=== PATIENT | male | born 1965 | race Caucasian/White ===

== ENCOUNTER → 2018-03-09 | Outpatient (CLI) | payer OTHER ==
--- NOTE | 2018-03-09 12:46 | MR ---
EXAMINATION TYPE: MR cervical spine wo con DATE OF EXAM: 03/09/2018 COMPARISON: NONE HISTORY: 52-year-old male Cervicalgia, BROWN TECHNIQUE: Multiplanar, multisequence images of the cervical spine were acquired. Findings: No craniocervical junction abnormality, predental space widening, or prevertebral soft tissue swellin g. Preserved alignment of the cervical spine. Mild heterogeneous marrow signal without suspicious focal marrow replacement. Variable mild intervertebral disc desiccation throughout with multilevel disc osteophyte complexes, l argest at C6-C7. Ligamentum flavum thickening in the mid to lower cervical spine along with facet and uncovertebral joint degenerative change. At C2-C3, facet degenerative change without significant canal or foraminal stenosis. At C3-C4, facet and uncovertebral joint degenerative change, greater on the right with small disc ost eophyte complex which abuts but does not flatten the ventral cord. No significant spinal canal stenos is. Changes result in lefm-al-elbhxrtm right neuroforaminal stenosis. At C4-C5, uncovertebral joint and facet degenerative change without significant canal or foraminal st enosis. At C5-C6, uncovertebral joint and facet degenerative change. Changes result in moderate to severe lef t neuroforaminal stenosis. Disc osteophyte complex and ligamentum flavum thickening is present. Minim al impression onto the thecal sac without significant spinal canal stenosis. At C6/C7, there is disc osteophyte complex eccentric towards the left with uncovertebral joint and fa cet degenerative change. Changes result in moderate left greater than right neural foraminal stenosis with mild narrowing of the spinal canal and abutment of the ventral cord without cord flattening. At C7-T1, mild facet degenerative change without canal or foraminal stenosis. No prevertebral or paravertebral soft tissue abnormality seen. Normal course and signal intensity of the cervical cord. IMPRESSION: 1. Mild to moderate degenerative disc disease with scattered facet and uncovertebral joint arthropath y. 2. Disc osteophyte complex and ligamentum flavum thickening contribute to mild spinal canal stenosis at C6-C7. There is ventral cord abutment without cord compression or tracy canal compromise. 3. Variable neuroforaminal stenoses as outlined above, moderate to severe on the left at C5-C6 and mo derate left greater than right at C6-C7.
== END | disposition home or self-care (01) ==
LOC: RADMRIMAIN 10:29
PROVIDERS: ATTEND Family Medicine
DX: M48.02 Spinal stenosis, cervical region (principal); M99.71 Connective tissue and disc stenosis of intervertebral foramina of cervical region; M50.30 Other cervical disc degeneration, unspecified cervical region; M46.92 Unspecified inflammatory spondylopathy, cervical region; M25.78 Osteophyte, vertebrae
CPT/HCPCS: 72141

== ENCOUNTER → 2018-08-19 | Outpatient (CLI) | payer OTHER ==
--- NOTE | 2018-08-19 14:16 | CT ---
EXAMINATION TYPE: CT soft tissue neck wo/w con DATE OF EXAM: 08/19/2018 HISTORY: Enlarged lymph node. History of Natarajan's esophagus. 75 pounds weight loss over 9 months. COMPARISON: 03/09/[address] DLP: 1139 mGycm. Automated Exposure Control for Dose Reduction was Utilized. TECHNIQUE: CT scan of the neck is performed without and with IV Contrast, patient injected with 100 ml mL of Isovue 300, axial images are obtained, coronal and sagittal reformatted images are reviewed. FINDINGS: Airway: Near complete to complete obstruction of the oropharynx likely secondary to relaxation of the soft palate and tonsillar hypertrophy. The vallecula, piriform sinuses, focal cords, and true vocal cords are unremarkable. Thyroid gland is also symmetric and unremarkable. Parotid/submandibular glands: Parotid glands and submandibular glands are symmetric. No calculi or hanley rrounding inflammatory fat stranding. Carotid/Vascular Structures: Calcific atherosclerosis predominates at the carotid bulbs bilaterally. Osseous Structures: There is rightward nasal septal deviation. Visualized paranasal sinuses and masto id air cells are well aerated. Mild multilevel degenerative changes of the spine are seen. Other: No evidence of adenopathy is seen within the neck. IMPRESSION: 1. Near to complete obstruction of the oropharynx. This appears to be secondary to relative fixation of the soft palate and tonsillar hypertrophy. Direct visualization is recommended. 2. No adenopathy of the neck is appreciated. 3. Atherosclerosis of the carotids, predominating within the carotid bulbs. Carotid ultrasound could be performed for further evaluation.
== END | disposition home or self-care (01) ==
LOC: RADCTMAIN 06:59
PROVIDERS: ATTEND Family Medicine
DX: I65.29 Occlusion and stenosis of unspecified carotid artery (principal); J39.2 Other diseases of pharynx
CPT/HCPCS: 70492; Q9967

== ENCOUNTER → 2020-07-31 | Outpatient (CLI) | payer OTHER ==
--- NOTE | 2020-07-31 08:41 | US ---
EXAMINATION TYPE: US abdomen complete DATE OF EXAM: 07/31/2020 COMPARISON: NONE CLINICAL HISTORY: R10.84 Generalized abdominal pain. Pt states generalized ABD pain with nausea post bowel movements x many years EXAM MEASUREMENTS: Liver Length: 15.7 cm Gallbladder Wall: 0.2 cm CBD: 0.3 cm Spleen: 8.0 cm Right Kidney: 11.0 x 4.7 x 5.5 cm Left Kidney: 11.5 x 6.1 x 5.0 cm Pancreas: wnl, tail obscured by overlying bowel gas Liver: Appear wnl Gallbladder: Probable polyp posterior wall Evidence for sonographic Obrien's sign: No CBD: wnl Spleen: wnl Right Kidney: wnl Left Kidney: wnl Upper IVC: wnl Abd Aorta: No evidence of AAA, there are aortic wall calcifications present. IMPRESSION: 1. Cholelithiasis versus gallbladder wall polyp. 2. Ultrasound abdomen is visualized is otherwise unremarkable.
== END | disposition home or self-care (01) ==
LOC: RADUSWWP 08:06
PROVIDERS: ATTEND Family Medicine
DX: R10.84 Generalized abdominal pain (principal)
CPT/HCPCS: 76700

== ENCOUNTER 2020-09-12 10:49 | Day surgery (SDC) | payer OTHER ==
[2020-09-10 15:09] VITALS: BMI 23.0
[~2020-09-12 10:49] MED LIST: LACTATED RINGERS 1,000 ML IV SCH
[2020-09-12 11:06] VITALS: RESP 16; TEMP 97.7
[2020-09-12] MEDS ORDERED: LIDOCAINE 1% (10MG/ML) FOR IV START INTRADERMA ONE (11:10)
[2020-09-12] MEDS ORDERED: MIDAZOLAM 2 MG/2 ML VIAL ONE (11:16)
[2020-09-12] MEDS ORDERED: LIDOCAINE 1% INJ 10MG/ML (20 ML MDV) ONE (11:16)
[2020-09-12] MEDS ORDERED: GLYCOPYRROLATE 0.2 MG/ML 2 ML VIAL ONE (11:16)
[2020-09-12] MEDS ORDERED: fentaNYL (PF) 50 MCG/ML 2 ML AMP ONE (11:16)
[2020-09-12] MEDS ORDERED: PROPOFOL 10 MG/ML 20 ML VIAL IV ONE (11:16)
--- NOTE | 2020-09-12 11:22 | P.GSHP ---
History of Present Illness H&P Date: 09/12/20 Chief Complaint: Abdominal pain, GERD, diverticulitis Subjective 4-year-old male referred from Christina Carvalho M.D. Patient's had complaints of abdominal pain. Has a history of GERD and diverticulitis. Past Medical History Past Medical History: GERD/Reflux, Sleep Apnea/CPAP/BIPAP Additional Past Medical History / Comment(s): Natarajan's esophagus, pain with nausea after having stools, hx migraines,nolonger needs cpap after wt loss History of Any Multi-Drug Resistant Organisms: None Reported Additional Past Surgical History / Comment(s): hemorrhoidectomy with fissures repaired 2018,EGD Past Anesthesia/Blood Transfusion Reactions: No Reported Reaction Additional Past Anesthesia/Blood Transfusion Reaction / Comment(s): no hx blood transfusion Smoking Status: Current every day smoker - Past Family History Mother Family Medical History: No Reported History Father Additional Family Medical History / Comment(s): paternal grandmother colon CA Medications and Allergies Home Medications Medication Instructions Recorded Confirmed Type HYDROcodone/APAP 10-325MG [[place] 1 tab PO BID PRN 09/10/20 09/12/20 History 10-325] Pantoprazole Sodium [Protonix] 40 mg PO DAILY PRN 09/10/20 09/12/20 History SUMAtriptan SUCCINATE [Imitrex] 100 mg PO DAILY PRN 09/10/20 09/12/20 History Allergies Allergy/AdvReac Type Severity Reaction Status Date / Time No Known Allergies Allergy Verified 09/10/20 14:59 Surgical - Exam Vital Signs Temp Pulse Resp BP Pulse Ox 97.7 F 94 16 145/88 99 09/12/20 11:02 09/12/20 11:02 09/12/20 11:02 09/12/20 11:02 09/12/20 11:02 - General well developed, well nourished, no distress - Eyes PERRL - ENT normal pinna - Neck no masses - Respiratory normal expansion - Cardiovascular Rhythm: regular - Abdomen Abdomen: soft, non tender Assessment and Plan Assessment: Abdominal pain, GERD history of diverticula is. We'll perform EGD and colonoscopy.
--- NOTE | 2020-09-12 11:41 | P.OP ---
Date of Procedure: 09/12/20 Preoperative Diagnosis: GERD Diverticulitis Postoperative Diagnosis: Antral gastritis Hiatal hernia Esophagitis Diverticulosis Procedure(s) Performed: EGD Colonoscopy Anesthesia: MAC Surgeon: Franky Fernando Pathology: other (Antrum, esophagus) Condition: stable Disposition: PACU Description of Procedure: The patient's placed on the endoscopy table lateral position. He received IV sedation. The gastroscope oropharynx passed in the esophagus and stomach. Scope was then placed through the pylorus. The first and second portion of the duodenum appeared normal. Scope was then brought back the antrum and this appeared mildly inflamed. The scope was unretroflexed and remainder of the stomach appeared normal. There patient had a moderate size hiatal hernia. The GE junction was at 38 cm. The distal esophagus was inflamed. Biopsies performed. The proximal esophagus appeared normal. [place] was then withdrawn for patient. Next digital rectal exam is performed which revealed a few external hemorrhoids. The flexible colonoscope was then placed patient anus and passed through the colon. The scope could not be passed beyond the transverse colon. The patient developed arrhythmias with several positives pulse once the scope was maneuvered into the transverse colon yvan was called and decided to abort the remaining colonoscopy due to his potential for arrhythmias. The scope was withdrawn the remainder of the descending and; exam. There is extensive diverticular changes in the sigmoid colon. Scope was then brought back the rectum and this appeared normal. Scope withdrawn for patient.
[2020-09-12 12:03] VITALS: BP 135/87; PULSE 91
== END 2020-09-12 12:40 | disposition home or self-care (01) ==
LOC: ORWHC2ENDO 10:49
PROVIDERS: ATTEND Surgery
DX: K57.30 Diverticulosis of large intestine without perforation or abscess without bleeding (principal); Z53.8 Procedure and treatment not carried out for other reasons; K29.50 Unspecified chronic gastritis without bleeding; K21.00 Gastro-esophageal reflux disease with esophagitis, without bleeding; K64.4 Residual hemorrhoidal skin tags; K44.9 Diaphragmatic hernia without obstruction or gangrene; G47.30 Sleep apnea, unspecified; Z99.89 Dependence on other enabling machines and devices; K22.70 Barrett's esophagus without dysplasia; G43.909 Migraine, unspecified, not intractable, without status migrainosus; Z98.890 Other specified postprocedural states; Z80.0 Family history of malignant neoplasm of digestive organs; F17.210 Nicotine dependence, cigarettes, uncomplicated; Z79.899 Other long term (current) drug therapy
CPT/HCPCS: 88305; 45378; 43239; J2250; J2001; J3010; J2704

== ENCOUNTER → 2020-10-09 | Day surgery (SDC) | payer OTHER ==
[2020-10-04 16:02] VITALS: BMI 23.0
[~2020-10-09] MED LIST changes: +ACETAMINOPHEN TAB 500 MG TAB PO PRN; +ATROPINE SULFATE 0.4 MG/ML 1 ML VIAL ONE; +BUPIVACAINE (PF) 0.25% 30 ML VIAL SQ ONE; +DEXAMETHASONE SOD PHOSPHATE 4 MG/ML 1 ML VIAL IVP ONE; +GLYCOPYRROLATE 0.2 MG/ML 2 ML VIAL ONE; +HEPARIN SODIUM,PORCINE 5,000 UNIT/ML 1 ML VIAL SQ PRN; +HYDROcodone/APAP 10-325MG 1 EACH TAB ONE; +HYDROcodone/APAP 10-325MG 1 EACH TAB PO ONE; +KETOROLAC 15 MG/ML 1 ML VIAL IVP ONE; +LACTATED RINGERS 1,000 ML IV ONE; +LIDOCAINE 1% INJ 10MG/ML (20 ML MDV) ONE; +MIDAZOLAM 2 MG/2 ML VIAL IV PRN; +MIDAZOLAM 2 MG/2 ML VIAL ONE; +NEOSTIGMINE 1 MG/ML 10 ML VIAL ONE; +ONDANSETRON 4 MG/2 ML VIAL IVP PRN; +ONDANSETRON 4 MG/2 ML VIAL ONE; +PROPOFOL 10 MG/ML 20 ML VIAL IV ONE; +ROCURONIUM 10 MG/ML (10 ML VIAL) IV ONE; +SUCCINYLCHOLINE CHLORIDE 100 MG/5 ML SYR IV ONE; +fentaNYL (PF) 50 MCG/ML 2 ML AMP IV PRN; +fentaNYL (PF) 50 MCG/ML 2 ML AMP ONE
[2020-10-09] MEDS: HYDROmorphone 0.5 MG/0.5 ML SYRINGE IVP PRN ×6 (08:45→09:20)
[2020-10-09 09:07] VITALS: RESP 18; TEMP 97.5
--- NOTE | 2020-10-09 09:09 | P.OP ---
Date of Procedure: 10/09/20 Preoperative Diagnosis: Cholecystitis Postoperative Diagnosis: Cholecystitis Procedure(s) Performed: Laparoscopic cholecystectomy Anesthesia: ALBA Surgeon: Franky Fernando Estimated Blood Loss (ml): 5 Pathology: other (Gallbladder) Condition: stable Disposition: PACU Description of Procedure: The patient was placed on the operating table. The patient received a general endotracheal tube anesthesia. The patients abdomen was prepped and draped in the usual sterile fashion. Through an infraumbilical stab incision, the fascia of the anterior abdominal wall was grasped with a pair of Kochers and then the Veress needle was placed in the peritoneal cavity. Position of the Veress needle was confirmed with positive drop test. The abdomen was then insufflated. After adequate insufflation, the 10 mm trocar was placed in the peritoneal cavity. Following this the laparoscope was placed in the peritoneal cavity. The patient was placed in the head-up, right side up position and then a 5 mm trocar was placed in the right lateral and right subcostal position under direct visualization. A 8 mm trocar was placed in the epigastric position. The gallbladder was grasped in the fundus and infundibulum. Traction on the gallbladder was placed in the lateral and the cephalad positions. The triangle of Calot was visualized.. The cystic duct was bluntly dissected until the union of the cystic duct and common bile duct was seen. A critical view of safety was achieved. The cystic duct was then divided and sealed with the Harmonic scissors. A PDS Endoloop was then placed throughout the cystic duct stump. The cystic artery divided and sealed with the Harmonic scissors. The gallbladder was then removed from the liver bed using Harmonic scissors. The gallbladder was then extracted through the epigastric port site. Operative field was checked for any bleeding spots and Harmonic scissors was used to coagulate the liver bed. The abdomen was irrigated. The trocars were removed. The skin was closed using interrupted 3-0 Vicryl suture. Dermabond dressing were applied. The patient tolerated the procedure well.
[2020-10-09 10:29] VITALS: BP 155/82; PULSE 60
== END ==
LOC: OR 06:33
PROVIDERS: ATTEND Surgery
DX: K81.1 Chronic cholecystitis (principal); F17.210 Nicotine dependence, cigarettes, uncomplicated; K21.9 Gastro-esophageal reflux disease without esophagitis; Z79.899 Other long term (current) drug therapy
CPT/HCPCS: 88304; 47562; J2250; J0461; J1644; J1100; J2710; J0690; J2405; J2001; J3010; J1885; J0330; J2704; J1170

== ENCOUNTER 2021-04-29 08:45 | Day surgery (SDC) | payer OTHER ==
[2021-04-25 10:37] VITALS: BMI 23.7
--- NOTE | 2021-04-28 09:22 | HP ---
HISTORY AND PHYSICAL CHIEF COMPLAINT: Right shoulder pain and stiffness. HISTORY OF PRESENT ILLNESS: Patient is a 55-year-old right-hand dominant male who presents with right shoulder pain and stiffness for the past 8 months. He denies any specific injury. He is having pain with any attempted overhead use and has had significant night symptoms. He has been taking medications without much relief. PAST MEDICAL HISTORY: Significant for migraines. PAST SURGICAL HISTORY: Significant for cholecystectomy and previous colon surgery. CURRENT MEDICATIONS: [place], Protonix, and simvastatin. FAMILY HISTORY: Significant for cancer. SOCIAL HISTORY: Significant for current tobacco use. REVIEW OF SYSTEMS: Sixteen-point review of systems is otherwise reviewed and is noncontributory. PHYSICAL EXAMINATION: On examination, the patient is approximately 6 feet tall, 180 pounds of mesomorphic habitus. HEENT exam is nonfocal. Neck is supple. He is tender about the anterior subacromial space of the right shoulder. Active range of motion forward elevation 85 degrees, external rotation with arm to side 35 degrees, internal rotation to L5. Passively I am able to forward elevate him to 85 degrees. Motor strength is 5-/5 for external rotation with the arm at the side and 4+/5 for abduction. Impingement test, Neer test, and Speed test are positive. His distal neurovascular exam appears intact in the right upper extremity. X-rays of the right shoulder obtained in the office show a type 2 acromion with maintained humeral head to acromial distance. IMPRESSION: Right shoulder adhesive capsulitis. RECOMMENDATIONS: I talked to the patient at length regarding his condition and treatment options. At this point, he opts to proceed with manipulation under anesthesia. We will start formal therapy directly after the procedure. We will also start a Medrol Dosepak after the procedure. Risks and benefits were discussed at length in layman's terms. MMODL / IJN: [id number] /
[~2021-04-29 08:45] MED LIST changes: -ACETAMINOPHEN TAB 500 MG TAB PO PRN; -ATROPINE SULFATE 0.4 MG/ML 1 ML VIAL ONE; -BUPIVACAINE (PF) 0.25% 30 ML VIAL SQ ONE; +DEXAMETHASONE SOD PHOSPHATE 4 MG/ML 1 ML VIAL IV ONE; -DEXAMETHASONE SOD PHOSPHATE 4 MG/ML 1 ML VIAL IVP ONE; -GLYCOPYRROLATE 0.2 MG/ML 2 ML VIAL ONE; -HEPARIN SODIUM,PORCINE 5,000 UNIT/ML 1 ML VIAL SQ PRN; -HYDROcodone/APAP 10-325MG 1 EACH TAB ONE; -HYDROcodone/APAP 10-325MG 1 EACH TAB PO ONE; -KETOROLAC 15 MG/ML 1 ML VIAL IVP ONE; -LACTATED RINGERS 1,000 ML IV ONE; +LIDOCAINE 1% (10MG/ML) FOR IV START INTRADERMA PRN; -LIDOCAINE 1% INJ 10MG/ML (20 ML MDV) ONE; -MIDAZOLAM 2 MG/2 ML VIAL IV PRN; -MIDAZOLAM 2 MG/2 ML VIAL ONE; -NEOSTIGMINE 1 MG/ML 10 ML VIAL ONE; +ONDANSETRON 4 MG/2 ML VIAL IVP ONE; -ONDANSETRON 4 MG/2 ML VIAL IVP PRN; -ONDANSETRON 4 MG/2 ML VIAL ONE; -PROPOFOL 10 MG/ML 20 ML VIAL IV ONE; +Pre Op ABX Message 1 EACH MISC MISCELLANE ONE; -ROCURONIUM 10 MG/ML (10 ML VIAL) IV ONE; -SUCCINYLCHOLINE CHLORIDE 100 MG/5 ML SYR IV ONE; -fentaNYL (PF) 50 MCG/ML 2 ML AMP IV PRN; -fentaNYL (PF) 50 MCG/ML 2 ML AMP ONE
[2021-04-29] MEDS ORDERED: KETOROLAC 15 MG/ML 1 ML VIAL ONE (09:29)
[2021-04-29 09:30] VITALS: TEMP 97.3
[2021-04-29] MEDS ORDERED: fentaNYL (PF) 50 MCG/ML 2 ML AMP ONE (10:05)
[2021-04-29] MEDS ORDERED: GLYCOPYRROLATE 0.2 MG/ML 2 ML VIAL ONE (10:05)
[2021-04-29] MEDS ORDERED: LIDOCAINE 1% INJ 10MG/ML (20 ML MDV) ONE (10:05)
[2021-04-29] MEDS ORDERED: PROPOFOL 10 MG/ML 20 ML VIAL IV ONE (10:05)
--- NOTE | 2021-04-29 10:16 | P.OP ---
Date of Procedure: 04/29/21 Preoperative Diagnosis: Right shoulder adhesive capsulitis Postoperative Diagnosis: Same Procedure(s) Performed: Manipulation under anesthesia right shoulder Anesthesia: MAC Surgeon: Robert Griffin Estimated Blood Loss (ml): 0 Pathology: none sent Condition: stable Disposition: PACU Indications for Procedure: The patient's 55-year-old male presents with progressive right shoulder pain and stiffness despite conservative measures. Clinically he is noted of evidence of significant adhesive capsulitis. A discussion of the risks and benefits of manipulation under anesthesia was made with patient. He opted to proceed. Risks to include fracture, tendon rupture, possible recurrence of stiffness was discussed. Informed consent was obtained. Operative Findings: As below Description of Procedure: The patient was brought to the recovery room, and after induction of IV sedation I then gently manipulated his right shoulder. First with his arm at his side I obtained full external rotation. Moderate adhesions were encountered. I then obtained full forward elevation. Again moderate adhesions were encountered. Patient was then monitored until fully weight. There was no blood loss. No complications were incurred.
[2021-04-29] MEDS ORDERED: HYDROmorphone 0.5 MG/0.5 ML SYRINGE IVP ONE ×3 (10:23→10:36)
[2021-04-29] MEDS ORDERED: LACTATED RINGERS 1,000 ML IV ONE (10:34)
[2021-04-29] MEDS: fentaNYL (PF) 50 MCG/ML 2 ML AMP IV PRN ×2 (10:44→10:54)
[2021-04-29] MEDS ORDERED: fentaNYL (PF) 50 MCG/ML 2 ML AMP IV ONE (11:07)
[2021-04-29] MEDS ORDERED: ONDANSETRON 4 MG/2 ML VIAL IVP ONE (11:10)
[2021-04-29] MEDS ORDERED: HYDROcodone/APAP 10-325MG 1 EACH TAB ONE (11:35)
[2021-04-29] MEDS ORDERED: HYDROcodone/APAP 10-325MG 1 EACH TAB PO ONE (11:37)
[2021-04-29 12:00] VITALS: RESP 18
[2021-04-29 12:13] VITALS: BP 152/91; PULSE 76
== END 2021-04-29 12:30 | disposition home or self-care (01) ==
LOC: OR 08:45
PROVIDERS: ATTEND Orthopaedic Surgery
DX: M75.01 Adhesive capsulitis of right shoulder (principal); Z90.49 Acquired absence of other specified parts of digestive tract; Z98.890 Other specified postprocedural states; Z79.891 Long term (current) use of opiate analgesic; Z79.899 Other long term (current) drug therapy; Z80.9 Family history of malignant neoplasm, unspecified; F17.200 Nicotine dependence, unspecified, uncomplicated; M19.90 Unspecified osteoarthritis, unspecified site; R00.1 Bradycardia, unspecified
CPT/HCPCS: 23700; J1100; J2405; J2001; J3010; J1885; J2704; J1170

== ENCOUNTER → 2024-12-18 | Outpatient (CLI) | payer OTHER ==
--- NOTE | 2024-12-18 10:07 | US ---
EXAMINATION TYPE: US abdomen complete DATE OF EXAM: 12/18/2024 COMPARISON: US 2019 CLINICAL INDICATION: Male, 59 years old with history of R10.32 LEFT LOWER QUAD PAIN; Hx cholecystecto my, abdominal pain x many years. TECHNIQUE: Grayscale and color Doppler imaging of the abdomen was performed. FINDINGS: EXAM MEASUREMENTS: Liver Length: 18.2 cm Gallbladder Wall: Surgically absent CBD: Obscured Spleen: 11.4 cm Right Kidney: 10.6 x 5.4 x 5.1 cm Left Kidney: 11.0 x 5.0 x 5.5 cm SILK HANGER NOTES: Exam is limited due to gas. Pancreas: Obscured Liver: Enlarged, heterogeneous, increased echogenicity and attenuation. Limited, many images taken i ntercostally. Gallbladder: Surgically absent CBD: Obscured Spleen: wnl Right Kidney: wnl, No hydronephrosis, calculi or masses seen Left Kidney: wnl, No hydronephrosis, calculi or masses seen Upper IVC: Limited Abd Aorta: Proximal segment was obscured. Plaque seen within aorta. The pancreas is obscured by overlying bowel gas. The liver is enlarged and heterogenous with increase d echogenicity. No focal lesion identified. No surface nodularity. Gallbladder is surgically absent. Common bile duct is obscured by overlying bowel gas. The spleen is within normal limits. Both kidneys demonstrate no hydronephrosis, shadowing calculi or solid mass. Atherosclerotic plaque within the ao rta. The proximal segment of the abdominal aorta is obscured by overlying bowel gas. The remaining po rtions do not demonstrate aneurysm. Limited visualization of the upper IVC. IMPRESSION: 1. No ultrasound evidence for an acute process. 2. Hepatic steatosis and minimal hepatomegaly. 3. Postcholecystectomy changes with nonvisualization of common bile duct due to overlying bowel gas. [facility], , 12/18/2024 10:05 AM
--- NOTE | 2024-12-18 12:01 | US ---
EXAMINATION TYPE: US groin LT DATE OF EXAM: 12/18/2024 COMPARISON: NONE CLINICAL INDICATION: Male, 59 years old with history of R10.32 Left lower quad pain; Left groin pain x 6 months. TECHNIQUE: Scanned left groin at area of pain. FINDINGS/IMPRESSION: Examination is limited due to overlying bowel gas. There is a possible hypoecho ic defect seen in LLQ measuring 1.3 cm in transverse and 0.7 cm in sagittal upon valsalva maneuver. P ossible hernia. No definitive bowel identified. Consider further evaluation with CT abdomen and pelvi s. [facility], , 12/18/2024 11:50 AM
== END | disposition home or self-care (01) ==
LOC: RADUSWWP 08:53
PROVIDERS: ATTEND Family Medicine
DX: K76.0 Fatty (change of) liver, not elsewhere classified (principal); R16.0 Hepatomegaly, not elsewhere classified; Z90.49 Acquired absence of other specified parts of digestive tract
CPT/HCPCS: 76700